=== PATIENT | female | born 1980 | race Two or more races ===

== ENCOUNTER 2021-07-07 08:54 | Inpatient (IN) | payer MEDICAID ==
[~2021-07-07] VITALS: Ht 154.9 cm; Wt 80.7 kg
[2021-07-07] MEDS ORDERED: PREN-129 OR (09:39)
[2021-07-07] MEDS ORDERED: LIDOCAINE 2%HCL (LOCAL ANESTH.) INJ 20ML MDV ONE (09:51)
[2021-07-07] MEDS ORDERED: LACT. RINGERS/OXYTOCIN 20UNITS 1,000 ML IV ONE (09:51)
[2021-07-07] MEDS ORDERED: LIDOCAINE 2%HCL (LOCAL ANESTH.) INJ 20ML MDV IJ PRN (10:00)
[2021-07-07] MEDS ORDERED: DERMOPLAST 60ML BOTTLE TOP PRN (10:00)
[2021-07-07] MEDS ORDERED: PROMETHAZINE HCL 25 MG/ML 1ML IV PRN (10:00)
[2021-07-07] MEDS ORDERED: LACTATED RINGER'S 1,000 ML IV SCH (10:00)
[2021-07-07] MEDS ORDERED: PHISODERM TOP SOLN 240ML BTL TOP PRN (10:00)
[2021-07-07] MEDS ORDERED: WITCH HAZEL-GLYCERIN PAD TOP PRN (10:00)
[2021-07-07 10:56] LABS: Basophils # (auto) 0 10 ^3/uL (0-0.2); Basophils % (auto) 0.5 % (0.0-2.0); Eosinophils # (auto) 0 10 ^3/uL (0-0.8); Eosinophils % (auto) 0.1 % (0.0-7.0); Hematocrit 41.9 % (36.0-46.0); Hemoglobin 13.6 g/dL (12.2-16.2); Lymphocytes % (auto) 19.3 % (10.0-50.0); Mean Corpuscular Hemoglobin 27.8 pg (28.0-32.0); Mean Corpuscular Hgb Conc. 32.5 g/dL (32.0-36.0); Mean Corpuscular Volume 85.5 fL (80.0-100.0); Monocytes # (auto) 0.8 10 ^3/uL (0-1.3); Neutrophils # (auto) 7.5 10 ^3/uL (1.6-8.6); Neutrophils % (auto) 72.1 % (37.0-80.0); Nucleated Red Blood Cells % 0.1 %; Red Cell Distribution Width 14.7 % (11.8-14.3); White Blood Cell 10.4 10^3/uL (4.4-10.8)
[2021-07-07] MEDS ORDERED: ACETAMINOPHEN 325 MG TAB PO PRN (11:00)
[2021-07-07] MEDS ORDERED: METHYLERGONOVINE MALEATE 0.2 MG/ML AMP IM ONE (11:00)
[2021-07-07] MEDS ORDERED: LACT. RINGERS/OXYTOCIN 20UNITS 500 ML IV ONE ×2 (11:00→11:30)
[2021-07-07 11:04] LABS: INR 0.88 (0.9-1.15); Partial Thromboplastin Time 32.2 sec (23.6-33.0)
[2021-07-07 11:07] LABS: Urine Bacteria FEW /hpf (None Seen); Urine Blood 1+ /uL (Negative); Urine Mucus FEW (None Seen); Urine Specific Gravity 1.021 (1.001-1.035); Urine WBC 2 /hpf (0 - 5)
[2021-07-07 11:08] LABS: Albumin 2.2 g/dL (3.4-5.0); Calcium 8.8 mg/dL (8.5-10.1)
[2021-07-07 11:08] LABS: Amphetamine Screen, Urine NEGATIVE (NEGATIVE); Barbiturate Scree,Urine NEGATIVE (NEGATIVE); Cannabinoid Screen, Urine NEGATIVE (NEGATIVE)
[2021-07-07 11:10] LABS: Alcohol, Urine < 3.0 mg/dL (0-10); Benzodiazephine Screen, Urine NEGATIVE (NEGATIVE); Cocaine Screen, Urine NEGATIVE (NEGATIVE); Opiate Scree,Urine NEGATIVE (NEGATIVE); Phencyclidine Screen, Urine NEGATIVE (NEGATIVE)
[2021-07-07 11:12] LABS: Bilirubin, Total 0.5 mg/dL (0.2-1.0); Total Protein 6.7 g/dL (6.4-8.2)
[2021-07-07] MEDS: IBUPROFEN 600 MG TAB PO PRN ×3 (11:19→21:24)
[2021-07-07 13:00] VITALS: BP 149/79
[2021-07-07 15:30] VITALS: BP 140/86
[2021-07-07 18:50] VITALS: BP 129/78
[2021-07-07 23:00] VITALS: BP 118/76
[2021-07-08] MEDS: IBUPROFEN 600 MG TAB PO PRN (00:30)
[2021-07-08] MEDS ORDERED: ACETAMINOPHEN 325 MG TAB PO ONE (02:49)
[2021-07-08 03:00] VITALS: BP 118/74
[2021-07-08 07:30] VITALS: BP 115/77
[2021-07-08] MEDS ORDERED: MEASLES, MUMPS & RUBELLA VAC(MMRII) 0.5ML SC ONE (08:45)
[2021-07-08 11:12] VITALS: BP 130/76
[2021-07-08 14:30] VITALS: BP 126/76
[2021-07-09 06:06] LABS: RPR Non Reactive (Non Reactive)
== END 2021-07-08 14:36 | disposition home or self-care (01) | DRG 560 ==
LOC: OBSVTOIN 08:54 → LDRP 08:54
PROVIDERS: ADMIT Obstetrics & Gynecology; ATTEND Obstetrics & Gynecology
PROC: 10E0XZZ Delivery of Products of Conception, External Approach (ICD-10-PCS; principal; 2021-07-07)
DX: O69.81X0 Labor and delivery complicated by cord around neck, without compression, not applicable or unspecified (principal); Z37.0 Single live birth; Z20.822 Contact with and (suspected) exposure to COVID-19; Z3A.38 38 weeks gestation of pregnancy
CPT/HCPCS: 36415; 59025; 59409; 80053; 80307; 81001; 81002; 84550; 85025; 85610; 85730; 86592; 86850; 86900; 86901; 87426; 90471; 94760; 96361; 96365; 96366; 96372; G0378; J2590